=== PATIENT | male | born 1960 | race Caucasian/White ===

== ENCOUNTER 2018-04-23 09:10 | Emergency (ER) | payer MEDICAID, OTHER ==
[~2018-04-23] VITALS: Ht 170.2 cm; Wt 99.8 kg
[2018-04-23 09:19] VITALS: BP 137/84
[2018-04-23] MEDS ORDERED: cefTRIAXone SOD 1,000 MG VL IM ONE (10:00)
[2018-04-23] MEDS ORDERED: TETANUS-DIPTH-ACEL PERTUSSIS 0.5ML SYRG IM ONE (10:15)
[2018-04-23] MEDS ORDERED: LIDOCAINE 1% HCL (LOCAL ANESTH.) INJ 20ML MDV ONE (10:28)
[2018-04-23] MEDS ORDERED: BACITRACIN TOP OINT 1 UD PKG TOP ONE (11:29)
== END 2018-04-23 11:40 | disposition home or self-care (01) ==
LOC: ER 09:15
DX: L03.012 Cellulitis of left finger (principal); Z90.89 Acquired absence of other organs
CPT/HCPCS: 73130; 73200; 87077; 87186; 87205; 90471; 90715; 96372; 99285; J0696; J2001